=== PATIENT | male | born 1965 | race Hispanic/Latino ===

== ENCOUNTER 2021-02-05 13:30 | Emergency (ER) | payer SELFPAY ==
[~2021-02-05] VITALS: Ht 172.7 cm; Wt 83.9 kg
[2021-02-05] MEDS ORDERED: HYDROCODONE/APAP 7.5MG-325MG 1 EA TAB PO ONE (14:00)
[2021-02-05] MEDS ORDERED: ACETAMINOPHEN 325 MG TAB PO ONE (14:00)
[2021-02-05 14:51] LABS: CLARITY,URINE HAZY (CLEAR); COLOR,URINE YELLOW (YELLOW); KETONES,URINE TRACE (NEGATIVE); LEUKOCYTE ESTERASE ,URINE NEGATIVE (NEGATIVE); NITRITE,URINE NEGATIVE (NEGATIVE); PROTEIN,URINE DIPSTICK 2+ (NEGATIVE); URINE UROBILINOGEN 0.2 mg/dL (0.2 - 1)
[2021-02-05 14:55] LABS: BACTERIA,URINE FEW /HPF; EPITHELIAL CELLS,URINE FEW /LPF
[2021-02-05 14:56] LABS: AMORPHOUS SEDIMENT,URINE FEW (FEW); MUCUS,URINE FEW (RARE)
[2021-02-05] MEDS ORDERED: CEFTRIAXONE SOD 1 GM VIAL IM ONE (15:00)
[2021-02-05] MEDS ORDERED: AZITHROMYCIN 250 MG TAB PO STA (15:00)
[2021-02-05] MEDS ORDERED: LIDOCAINE HCL 1% 2 ML AMP ONE (16:04)
== END 2021-02-05 16:43 | disposition home or self-care (01) ==
LOC: ER 14:34
DX: R30.0 Dysuria (principal); R50.9 Fever, unspecified; N39.0 Urinary tract infection, site not specified; M54.5 Low back pain
CPT/HCPCS: 81001; 87086; 87186; 99284; J0696; J2001